=== PATIENT | male | born 1955 | race Caucasian/White ===

== ENCOUNTER 2018-10-21 21:42 | Inpatient (IN) | payer BC ==
[~2018-10-21] VITALS: Ht 185.4 cm; Wt 111.2 kg
[2018-10-21] MEDS ORDERED: dilTIAZem IV PUSH 25 MG/5 ML VIAL IVP ONE ×2 (22:00→23:30)
[2018-10-21 22:12] LABS: BASO % 1 % (0-3); EOS # 0.1 x10^3/uL (0.0-0.7); EOS % 1 % (0-3); HEMATOCRIT 41.5 % (39.0-53.0); HEMOGLOBIN 13.9 g/dL (13.0-17.5); LYMPH # 2.7 x10^3/uL (1.0-4.8); LYMPH % 28 % (24-48); MEAN CORPUSCULAR HEMOGLOBIN 30 pg (25-35); MEAN CORPUSCULAR HGB CONC 33 g/dL (31-37); MEAN CORPUSCULAR VOLUME 90 fL (79-100); MONO % 11 % (0-9); NEUT # 5.8 x10^3uL (1.8-7.7); NEUT % 60 % (31-73); PLATELET COUNT 213 x10^3/uL (140-400); RED BLOOD COUNT 4.62 x10^6/uL (4.30-5.70); RED CELL DISTRIBUTION WIDTH 15.4 % (11.5-14.5); WHITE BLOOD COUNT 9.7 x10^3/uL (4.0-11.0)
[2018-10-21 22:24] LABS: CALCIUM 9.7 mg/dL (8.5-10.1); CREATININE 1.2 mg/dL (0.7-1.3); GFR 61.1
--- NOTE | 2018-10-21 22:25 | RAD ---
Indication:Palpitations TECHNIQUE:Portable AP chest X-ray COMPARISON: None FINDINGS: Heart is normal in size. Lungs are clear. Prominent bilateral bronchial markings. Visualized bony thorax within normal limits. No pneumothorax or pleural effusion. IMPRESSION: Findings suggests bronchitis. Electronically signed by: Jose De Jesus Saleh DO (10/21/2018 10:22 PM) [facility]
[2018-10-21 22:30] LABS: ALBUMIN 4.3 g/dL (3.4-5.0); ALBUMIN/GLOBULIN RATIO 1.5 (1.0-1.7); TOTAL BILIRUBIN 0.4 mg/dL (0.2-1.0); TOTAL PROTEIN 7.2 g/dL (6.4-8.2)
[2018-10-21] MEDS ORDERED: IV NORMAL SALINE 1000ML BAG 1,000 ML IV SCH (23:00)
[2018-10-21] MEDS ORDERED: ASPIRIN CHEWABLE 81 MG TABLET. PO ONE (23:00)
--- NOTE | 2018-10-21 23:06 | PHYS DOC ---
Past Medical History Past Medical History: A-Fib Additional Past Medical Histor: A-fib in 1995 (not medicated for it) Past Surgical History: Other Additional Past Surgical Histo: Bilateral knee, right shoulder Alcohol Use: Occasionally Drug Use: None Adult General Chief Complaint Chief Complaint: Palpitations [facility] HPI Patient is a 63-year-old male who presents with complaint of palpitations stating that it feels like his heart is beating very irregularly and fast. He denies any actual chest pain but does state that he has a fight feeling in both shoulders. He denies any nausea, vomiting or diaphoresis. He does indicate that he does get some shortness of breath with exertion. Patient states that symptoms that started earlier today and states that usually when he has symptoms like this they only last for a few minutes and resolved. He denies being on a blood thinner. He does report a history of atrial fibrillation in the past but states that it typically resolves spontaneously.[] Review of Systems Review of Systems Constitutional: Denies fever or chills [] Respiratory: Positive exertional shortness of breath [] Cardiovascular: No additional information not addressed in HPI [] GI: Denies abdominal pain, nausea, vomiting or diarrhea [] Integument: Denies rash or skin lesions [] Neurologic: Denies headache, focal weakness or sensory changes [] All other systems were reviewed and found to be within normal limits, except as documented in this note. Current Medications Current Medications Current Medications Medications (Trade) Dose Ordered Sig/[facility] Start Time Stop Time Status Last Admin Dose Admin Aspirin (Children'S Aspirin) 324 mg 1X ONCE 10/21/18 23:00 10/21/18 23:01 DC 10/21/18 22:54 324 MG Diltiazem HCl (Cardizem Iv Push) 10 mg 1X ONCE 10/21/18 23:30 10/21/18 23:31 DC 10/21/18 23:41 10 MG Diltiazem HCl 125 mg/Dextrose 125 ml @ 5 mls/hr 1X ONCE 10/21/18 23:30 10/23/18 00:29 10/21/18 23:23 5 MLS/HR Sodium Chloride 1,000 ml @ 100 mls/hr Q10H 10/21/18 23:00 10/22/18 08:59 10/21/18 22:54 100 MLS/HR Allergies Allergies Allergies Coded Allergies Type Severity Reaction Last Updated Verified No Known Drug Allergies 10/21/18 No Physical Exam Physical Exam Constitutional: Well developed, well nourished, no acute distress, non-toxic appearance. [] HENT: Normocephalic, atraumatic, bilateral external ears normal, oropharynx moist, no oral exudates, nose normal. [] Eyes: PERRLA, EOMI, conjunctiva normal, no discharge. [] Neck: Normal range of motion, no tenderness, supple, no stridor. [] Cardiovascular: Markedly tachycardic rate with irregular rhythm[] Lungs & Thorax: Bilateral breath sounds clear to auscultation [] Abdomen: Bowel sounds normal, soft, no tenderness. [] Skin: Warm, dry, no erythema, no rash. [] Extremities: No tenderness, no cyanosis, no clubbing, ROM intact. [] Neurologic: Alert and oriented X 3, no focal deficits noted. [] Current Patient Data Vital Signs Vital Signs Date Time Temp Pulse Resp B/P (MAP) Pulse Ox O2 Delivery O2 Flow Rate FiO2 10/21/18 23:41 129 130/80 10/21/18 22:55 14 96 Room Air 10/21/18 21:42 98.7 98.7 Lab Values Laboratory Tests Test 10/21/18 22:03 White Blood Count 9.7 x10^3/uL (4.0-11.0) Red Blood Count 4.62 x10^6/uL (4.30-5.70) Hemoglobin 13.9 g/dL (13.0-17.5) Hematocrit 41.5 % (39.0-53.0) Mean Corpuscular Volume 90 fL (79-100) Mean Corpuscular Hemoglobin 30 pg (25-35) Mean Corpuscular Hemoglobin Concent 33 g/dL (31-37) Red Cell Distribution Width 15.4 % (11.5-14.5) H Platelet Count 213 x10^3/uL (140-400) Neutrophils (%) (Auto) 60 % (31-73) Lymphocytes (%) (Auto) 28 % (24-48) Monocytes (%) (Auto) 11 % (0-9) H Eosinophils (%) (Auto) 1 % (0-3) Basophils (%) (Auto) 1 % (0-3) Neutrophils # (Auto) 5.8 x10^3uL (1.8-7.7) Lymphocytes # (Auto) 2.7 x10^3/uL (1.0-4.8) Monocytes # (Auto) 1.0 x10^3/uL (0.0-1.1) Eosinophils # (Auto) 0.1 x10^3/uL (0.0-0.7) Basophils # (Auto) 0.0 x10^3/uL (0.0-0.2) Sodium Level 144 mmol/L (136-145) Potassium Level 4.0 mmol/L (3.5-5.1) Chloride Level 105 mmol/L (98-107) Carbon Dioxide Level 26 mmol/L (21-32) Anion Gap 13 (6-14) Blood Urea Nitrogen 20 mg/dL (8-26) Creatinine 1.2 mg/dL (0.7-1.3) Estimated GFR (Cockcroft-Gault) 61.1 BUN/Creatinine Ratio 17 (6-20) Glucose Level 149 mg/dL (70-99) H Calcium Level 9.7 mg/dL (8.5-10.1) Magnesium Level 2.0 mg/dL (1.8-2.4) Total Bilirubin 0.4 mg/dL (0.2-1.0) Aspartate Amino Transferase (AST) 26 U/L (15-37) Alanine Aminotransferase (ALT) 28 U/L (16-63) Alkaline Phosphatase 71 U/L (46-116) Troponin I Quantitative < 0.017 ng/mL (0.000-0.055) VI-Aep-W-Type Natriuretic Peptide 148 pg/mL (0-124) H Total Protein 7.2 g/dL (6.4-8.2) Albumin 4.3 g/dL (3.4-5.0) Albumin/Globulin Ratio 1.5 (1.0-1.7) Thyroid Stimulating Hormone (TSH) 3.401 uIU/mL (0.358-3.74) Laboratory Tests 10/21/18 22:03 Laboratory Tests 10/21/18 22:03 EKG EKG [] Interpretation Time: EKG demonstrates atrial fibrillation with rapid ventricular response and rate of 149. Radiology/Procedures Radiology/Procedures [] Impressions: PROCEDURE: PORTABLE CHEST 1V Indication:Palpitations TECHNIQUE:Portable AP chest X-ray COMPARISON: None FINDINGS: Heart is normal in size. Lungs are clear. Prominent bilateral bronchial markings. Visualized bony thorax within normal limits. No pneumothorax or pleural effusion. IMPRESSION: Findings suggests bronchitis. Electronically signed by: Jose De Jesus Saleh DO (10/21/2018 10:22 PM) [facility] Course & Med Decision Making Course & Med Decision Making Pertinent Labs and Imaging studies reviewed. (See chart for details) [] Dragon Disclaimer Dragon Disclaimer This electronic medical record was generated, in whole or in part, using a voice recognition dictation system. Departure Departure Impression: Primary Impression: Atrial fibrillation with RVR Disposition: ADMITTED INPATIENT Admitting Physician: Priya Giang Condition: IMPROVED Referrals: BELLE RUBALCAVA MD (PCP) GONZALO SHAY Jr., DO October 21, 2018 23:06
[2018-10-21] MEDS ORDERED: dilTIAZem INJ 125 MG in IV DEXTROSE 5% 100ML 100 ML IV ONE (23:30)
[2018-10-22] VITALS (10 sets, daily range): BP systolic 109–148; BP diastolic 60–94
[2018-10-22] MEDS ORDERED: MORPHINE SULFATE 2 MG/ML VIAL. IV PRN (00:30)
[2018-10-22] MEDS ORDERED: ONDANSETRON PF 4 MG/2 ML VIAL. IV PRN (00:30)
[2018-10-22] MEDS ORDERED: NAPR500T8 PO (02:00)
--- NOTE | 2018-10-22 05:51 | NUR ---
Patient arrived to the unit around 0125. VS stable, assessment complete. Patient has a Cardizem drip running at 5ml/hr. resting comfortably on RA. no complaints of pain at this time. patient oriented to unit. bed in low, locked position. call light within reach.
--- NOTE | 2018-10-22 10:16 | PDOC1 ---
History and Physical Date of Admission: Date of Admission DATE: 10/22/18 TIME: 10:13 Chief Complaint: Problems: (1) Atrial fibrillation with RVR (2) Atrial fibrillation with RVR Chief Complain: Palpitations History of Present Illness: HPI: Patient is a pleasant 63-year-old male who had A. fib 23 years ago At that time he converted back to sinus rhythm but did undergo a cardiac catheter that was negative Once again he presents to the ER with chest discomfort and palpitations Worse when he lies down rated 9 out of 10 has some associated shortness of breath has been occurring off and on for couple days worse with moving describes as agonizing I discussed case with ER physician appears the patient's A. 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 because they'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 remodeling 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 kitchen Current Medications: Current Medications Current Medications Diltiazem HCl (Cardizem Iv Push) 20 mg 1X ONCE IVP Last administered on 10/21/18at 22:21; Start 10/21/18 at 22:00; Stop 10/21/18 at 22:44; Status DC Aspirin (Children'S Aspirin) 324 mg 1X ONCE PO Last administered on 10/21/18at 22:54; Start 10/21/18 at 23:00; Stop 10/21/18 at 23:01; Status DC Sodium Chloride 1,000 ml @ 100 mls/hr Q10H IV Last administered on 10/21/18at 22:54; Start 10/21/18 at 23:00; Stop 10/22/18 at 08:59; Status DC Diltiazem HCl (Cardizem Iv Push) 10 mg 1X ONCE IVP Last administered on 10/21/18at 23:41; Start 10/21/18 at 23:30; Stop 10/21/18 at 23:31; Status DC Diltiazem HCl 125 mg/Dextrose 125 ml @ 5 mls/hr 1X ONCE IV Last administered on 10/21/18at 23:23; Start 10/21/18 at 23:30; Stop 10/23/18 at 00:29 Ondansetron HCl (Zofran) 4 mg PRN Q8HRS PRN IV NAUSEA/VOMITING 1ST CHOICE; Start 10/22/18 at 00:30; Stop 10/23/18 at 00:29 Morphine Sulfate (Morphine Sulfate) 2 mg PRN Q2HR PRN IV SEVERE PAIN; Start 10/22/18 at 00:30; Stop 10/23/18 at 00:29 Active Scripts Active Reported Naproxen 500 Mg Tablet.dr 500 Mg PO BID ROS: Review of Systems Review of System REVIEW OF SYSTEMS: GENERAL: Denies weakness SKIN: No bruising, hair changes or rashes. EYES: No blurred, double or loss of vision. NOSE AND THROAT: No history of nosebleeds, hoarseness or sore throat. HEART: No history of palpitations, chest pain or shortness of breath on exertion. LUNGS: Denies cough, hemoptysis, wheezing or shortness of breath. GASTROINTESTINAL: Denies changes in appetite, nausea, vomiting, diarrhea or constipation. GENITOURINARY: No history of frequency, urgency, hesitancy or nocturia. NEUROLOGIC: Denies history of numbness, tingling, tremor or weakness. PSYCHIATRIC: No history of panic, anxiety or depression. ENDOCRINE: No history of heat or cold intolerance, polyuria or polydipsia. EXTREMITIES: Denies muscle weakness, joint pain, pain on walking or stiffness. Physical Exam: Vital Signs: Vital Signs Date Time Temp Pulse Resp B/P (MAP) Pulse Ox O2 Delivery O2 Flow Rate FiO2 10/22/18 08:00 Room Air 10/22/18 07:00 97.6 87 18 131/94 (106) 97 97.6 Physcial Exam: GEN.: No apparent distress. Alert and oriented. HEENT: Head is normocephalic, atraumatic NECK: Supple, no JVD LUNGS: Clear to auscultation without rhonchi or wheezing HEART: Intermittent A. fib normal S1-S2 ABDOMEN: Soft, nontender. Positive bowel sounds no organomegaly EXTREMITIES: Without any cyanosis, clubbing, or edema. Pedal pulses intact NEUROLOGIC: Normal speech, normal tone. A&O x 3 PSYCHIATRIC: Normal affect, normal mood. Stable SKIN: No ulcerations or rashes VASCULAR: Good capillary refill Labs: Labs: Laboratory Tests Test 10/21/18 22:03 10/22/18 05:00 10/22/18 06:15 White Blood Count 9.7 x10^3/uL (4.0-11.0) Red Blood Count 4.62 x10^6/uL (4.30-5.70) Hemoglobin 13.9 g/dL (13.0-17.5) Hematocrit 41.5 % (39.0-53.0) Mean Corpuscular Volume 90 fL (79-100) Mean Corpuscular Hemoglobin 30 pg (25-35) Mean Corpuscular Hemoglobin Concent 33 g/dL (31-37) Red Cell Distribution Width 15.4 % (11.5-14.5) Platelet Count 213 x10^3/uL (140-400) Neutrophils (%) (Auto) 60 % (31-73) Lymphocytes (%) (Auto) 28 % (24-48) Monocytes (%) (Auto) 11 % (0-9) Eosinophils (%) (Auto) 1 % (0-3) Basophils (%) (Auto) 1 % (0-3) Neutrophils # (Auto) 5.8 x10^3uL (1.8-7.7) Lymphocytes # (Auto) 2.7 x10^3/uL (1.0-4.8) Monocytes # (Auto) 1.0 x10^3/uL (0.0-1.1) Eosinophils # (Auto) 0.1 x10^3/uL (0.0-0.7) Basophils # (Auto) 0.0 x10^3/uL (0.0-0.2) Sodium Level 144 mmol/L (136-145) Potassium Level 4.0 mmol/L (3.5-5.1) Chloride Level 105 mmol/L (98-107) Carbon Dioxide Level 26 mmol/L (21-32) Anion Gap 13 (6-14) Blood Urea Nitrogen 20 mg/dL (8-26) Creatinine 1.2 mg/dL (0.7-1.3) Estimated GFR (Cockcroft-Gault) 61.1 BUN/Creatinine Ratio 17 (6-20) Glucose Level 149 mg/dL (70-99) Calcium Level 9.7 mg/dL (8.5-10.1) Magnesium Level 2.0 mg/dL (1.8-2.4) Total Bilirubin 0.4 mg/dL (0.2-1.0) Aspartate Amino Transf (AST/SGOT) 26 U/L (15-37) Alanine Aminotransferase (ALT/SGPT) 28 U/L (16-63) Alkaline Phosphatase 71 U/L (46-116) Troponin I Quantitative < 0.017 ng/mL (0.000-0.055) 0.022 ng/mL (0.000-0.055) 0.018 ng/mL (0.000-0.055) JL-Ysc-O-Type Natriuretic Peptide 148 pg/mL (0-124) Total Protein 7.2 g/dL (6.4-8.2) Albumin 4.3 g/dL (3.4-5.0) Albumin/Globulin Ratio 1.5 (1.0-1.7) Thyroid Stimulating Hormone (TSH) 3.401 uIU/mL (0.358-3.74) Laboratory Tests Test 10/21/18 22:03 10/22/18 05:00 10/22/18 06:15 White Blood Count 9.7 x10^3/uL (4.0-11.0) Red Blood Count 4.62 x10^6/uL (4.30-5.70) Hemoglobin 13.9 g/dL (13.0-17.5) Hematocrit 41.5 % (39.0-53.0) Mean Corpuscular Volume 90 fL (79-100) Mean Corpuscular Hemoglobin 30 pg (25-35) Mean Corpuscular Hemoglobin Concent 33 g/dL (31-37) Red Cell Distribution Width 15.4 % (11.5-14.5) Platelet Count 213 x10^3/uL (140-400) Neutrophils (%) (Auto) 60 % (31-73) Lymphocytes (%) (Auto) 28 % (24-48) Monocytes (%) (Auto) 11 % (0-9) Eosinophils (%) (Auto) 1 % (0-3) Basophils (%) (Auto) 1 % (0-3) Neutrophils # (Auto) 5.8 x10^3uL (1.8-7.7) Lymphocytes # (Auto) 2.7 x10^3/uL (1.0-4.8) Monocytes # (Auto) 1.0 x10^3/uL (0.0-1.1) Eosinophils # (Auto) 0.1 x10^3/uL (0.0-0.7) Basophils # (Auto) 0.0 x10^3/uL (0.0-0.2) Sodium Level 144 mmol/L (136-145) Potassium Level 4.0 mmol/L (3.5-5.1) Chloride Level 105 mmol/L (98-107) Carbon Dioxide Level 26 mmol/L (21-32) Anion Gap 13 (6-14) Blood Urea Nitrogen 20 mg/dL (8-26) Creatinine 1.2 mg/dL (0.7-1.3) Estimated GFR (Cockcroft-Gault) 61.1 BUN/Creatinine Ratio 17 (6-20) Glucose Level 149 mg/dL (70-99) Calcium Level 9.7 mg/dL (8.5-10.1) Magnesium Level 2.0 mg/dL (1.8-2.4) Total Bilirubin 0.4 mg/dL (0.2-1.0) Aspartate Amino Transf (AST/SGOT) 26 U/L (15-37) Alanine Aminotransferase (ALT/SGPT) 28 U/L (16-63) Alkaline Phosphatase 71 U/L (46-116) Troponin I Quantitative < 0.017 ng/mL (0.000-0.055) 0.022 ng/mL (0.000-0.055) 0.018 ng/mL (0.000-0.055) DH-Xjk-E-Type Natriuretic Peptide 148 pg/mL (0-124) Total Protein 7.2 g/dL (6.4-8.2) Albumin 4.3 g/dL (3.4-5.0) Albumin/Globulin Ratio 1.5 (1.0-1.7) Thyroid Stimulating Hormone (TSH) 3.401 uIU/mL (0.358-3.74) Images: Images Chest x-ray without acute changes Assessment/Plan Assessment/Plan A. fib with RVR Plan Serial enzymes, serial EKGs, cardiac monitoring , consult cardiology IV Cardizem drip we'll consider anticoagulation continue home medicines DVT prophylaxis PTOT prognosis guarded Total time 32 minutes GABY GARCIA III, DO October 22, 2018 10:16
--- NOTE | 2018-10-22 11:37 | PDOC2 ---
CONSULT Date of Consult Date of Consult DATE: 10/22/18 TIME: 11:37 Reason for Consult Reason for Consult: Atrial fibrillation Referring Physician Referring Physician: Dr. Olson Identification/Chief Complaint Chief Complaint Palpitations Source Source: Chart review, Patient History of Present Illness Reason for Visit: 63-year-old male was diagnosed with atrial fibrillation that converted spontaneously in 1995 presented complaining of palpitations that started last night when he was watching television. He was diagnosed with atrial fibrillation with rapid ventricular response and started on Cardizem drip with better rate control. He is presently feeling better and denied any chest pain, orthopnea/PND or syncope. Past Medical History Past Medical History Paroxysmal atrial fibrillation Past Surgical History Past Surgical History Bilateral knee and right shoulder surgeries Family History Family History Negative for premature coronary artery disease Social History Social History Patient denied any smoking or drug abuse but admitted to social intake of a [employer] Current Problem List Problem List Problems Medical Problems: (1) Atrial fibrillation with RVR Status: Acute Current Medications Current Medications Current Medications Diltiazem HCl (Cardizem Iv Push) 20 mg 1X ONCE IVP Last administered on 10/21/18at 22:21; Start 10/21/18 at 22:00; Stop 10/21/18 at 22:44; Status DC Aspirin (Children'S Aspirin) 324 mg 1X ONCE PO Last administered on 10/21/18at 22:54; Start 10/21/18 at 23:00; Stop 10/21/18 at 23:01; Status DC Sodium Chloride 1,000 ml @ 100 mls/hr Q10H IV Last administered on 10/21/18at 22:54; Start 10/21/18 at 23:00; Stop 10/22/18 at 08:59; Status DC Diltiazem HCl (Cardizem Iv Push) 10 mg 1X ONCE IVP Last administered on 10/21/18at 23:41; Start 10/21/18 at 23:30; Stop 10/21/18 at 23:31; Status DC Diltiazem HCl 125 mg/Dextrose 125 ml @ 5 mls/hr 1X ONCE IV Last administered on 10/21/18at 23:23; Start 10/21/18 at 23:30; Stop 10/23/18 at 00:29 Ondansetron HCl (Zofran) 4 mg PRN Q8HRS PRN IV NAUSEA/VOMITING 1ST CHOICE; S tart 10/22/18 at 00:30; Stop 10/23/18 at 00:29 Morphine Sulfate (Morphine Sulfate) 2 mg PRN Q2HR PRN IV SEVERE PAIN; Start 10/22/18 at 00:30; Stop 10/23/18 at 00:29 Active Scripts Active Reported Naproxen 500 Mg Tablet.dr 500 Mg PO BID Allergies Allergies: Coded Allergies: No Known Drug Allergies (Unverified , 10/21/18) ROS PSYCHOLOGICAL ROS: No: Hallucinations Eyes: No Loss of vision HEENT: No: Epistaxis Respiratory: No: Hemoptysis Cardiovascular: yes Palpitations; No Chest Pain Gastrointestinal: No Vomiting, No Diarrhea Genitourinary: No Hematuria Neurological: No Seizures Skin: No Rash Physical Exam General: Alert, Oriented X3 HEENT: Atraumatic, PERRLA Lungs: Clear to auscultation Heart: Regular rate Abdomen: Soft, No tenderness Extremities: No edema Psych/Mental Status: Mental status NL Vitals VITALS Vital Signs Date Time Temp Pulse Resp B/P (MAP) Pulse Ox O2 Delivery O2 Flow Rate FiO2 10/22/18 08:00 Room Air 10/22/18 07:00 97.6 87 18 131/94 (106) 97 97.6 Labs Labs Laboratory Tests Test 10/21/18 22:03 10/22/18 05:00 10/22/18 06:15 White Blood Count 9.7 x10^3/uL (4.0-11.0) Red Blood Count 4.62 x10^6/uL (4.30-5.70) Hemoglobin 13.9 g/dL (13.0-17.5) Hematocrit 41.5 % (39.0-53.0) Mean Corpuscular Volume 90 fL (79-100) Mean Corpuscular Hemoglobin 30 pg (25-35) Mean Corpuscular Hemoglobin Concent 33 g/dL (31-37) Red Cell Distribution Width 15.4 % (11.5-14.5) Platelet Count 213 x10^3/uL (140-400) Neutrophils (%) (Auto) 60 % (31-73) Lymphocytes (%) (Auto) 28 % (24-48) Monocytes (%) (Auto) 11 % (0-9) Eosinophils (%) (Auto) 1 % (0-3) Basophils (%) (Auto) 1 % (0-3) Neutrophils # (Auto) 5.8 x10^3uL (1.8-7.7) Lymphocytes # (Auto) 2.7 x10^3/uL (1.0-4.8) Monocytes # (Auto) 1.0 x10^3/uL (0.0-1.1) Eosinophils # (Auto) 0.1 x10^3/uL (0.0-0.7) Basophils # (Auto) 0.0 x10^3/uL (0.0-0.2) Sodium Level 144 mmol/L (136-145) Potassium Level 4.0 mmol/L (3.5-5.1) Chloride Level 105 mmol/L (98-107) Carbon Dioxide Level 26 mmol/L (21-32) Anion Gap 13 (6-14) Blood Urea Nitrogen 20 mg/dL (8-26) Creatinine 1.2 mg/dL (0.7-1.3) Estimated GFR (Cockcroft-Gault) 61.1 BUN/Creatinine Ratio 17 (6-20) Glucose Level 149 mg/dL (70-99) Calcium Level 9.7 mg/dL (8.5-10.1) Magnesium Level 2.0 mg/dL (1.8-2.4) Total Bilirubin 0.4 mg/dL (0.2-1.0) Aspartate Amino Transf (AST/SGOT) 26 U/L (15-37) Alanine Aminotransferase (ALT/SGPT) 28 U/L (16-63) Alkaline Phosphatase 71 U/L (46-116) Troponin I Quantitative < 0.017 ng/mL (0.000-0.055) 0.022 ng/mL (0.000-0.055) 0.018 ng/mL (0.000-0.055) LL-Idt-A-Type Natriuretic Peptide 148 pg/mL (0-124) Total Protein 7.2 g/dL (6.4-8.2) Albumin 4.3 g/dL (3.4-5.0) Albumin/Globulin Ratio 1.5 (1.0-1.7) Thyroid Stimulating Hormone (TSH) 3.401 uIU/mL (0.358-3.74) Laboratory Tests Test 10/21/18 22:03 10/22/18 05:00 10/22/18 06:15 White Blood Count 9.7 x10^3/uL (4.0-11.0) Red Blood Count 4.62 x10^6/uL (4.30-5.70) Hemoglobin 13.9 g/dL (13.0-17.5) Hematocrit 41.5 % (39.0-53.0) Mean Corpuscular Volume 90 fL (79-100) Mean Corpuscular Hemoglobin 30 pg (25-35) Mean Corpuscular Hemoglobin Concent 33 g/dL (31-37) Red Cell Distribution Width 15.4 % (11.5-14.5) Platelet Count 213 x10^3/uL (140-400) Neutrophils (%) (Auto) 60 % (31-73) Lymphocytes (%) (Auto) 28 % (24-48) Monocytes (%) (Auto) 11 % (0-9) Eosinophils (%) (Auto) 1 % (0-3) Basophils (%) (Auto) 1 % (0-3) Neutrophils # (Auto) 5.8 x10^3uL (1.8-7.7) Lymphocytes # (Auto) 2.7 x10^3/uL (1.0-4.8) Monocytes # (Auto) 1.0 x10^3/uL (0.0-1.1) Eosinophils # (Auto) 0.1 x10^3/uL (0.0-0.7) Basophils # (Auto) 0.0 x10^3/uL (0.0-0.2) Sodium Level 144 mmol/L (136-145) Potassium Level 4.0 mmol/L (3.5-5.1) Chloride Level 105 mmol/L (98-107) Carbon Dioxide Level 26 mmol/L (21-32) Anion Gap 13 (6-14) Blood Urea Nitrogen 20 mg/dL (8-26) Creatinine 1.2 mg/dL (0.7-1.3) Estimated GFR (Cockcroft-Gault) 61.1 BUN/Creatinine Ratio 17 (6-20) Glucose Level 149 mg/dL (70-99) Calcium Level 9.7 mg/dL (8.5-10.1) Magnesium Level 2.0 mg/dL (1.8-2.4) Total Bilirubin 0.4 mg/dL (0.2-1.0) Aspartate Amino Transf (AST/SGOT) 26 U/L (15-37) Alanine Aminotransferase (ALT/SGPT) 28 U/L (16-63) Alkaline Phosphatase 71 U/L (46-116) Troponin I Quantitative < 0.017 ng/mL (0.000-0.055) 0.022 ng/mL (0.000-0.055) 0.018 ng/mL (0.000-0.055) KK-Cwv-Q-Type Natriuretic Peptide 148 pg/mL (0-124) Total Protein 7.2 g/dL (6.4-8.2) Albumin 4.3 g/dL (3.4-5.0) Albumin/Globulin Ratio 1.5 (1.0-1.7) Thyroid Stimulating Hormone (TSH) 3.401 uIU/mL (0.358-3.74) Assessment/Plan Assessment/Plan Atrial fibrillation with rapid ventricular response. Rate better controlled with Cardizem infusion. We will change this to by mouth. TSH level normal. Start eliquis for stroke prophylaxis and plan outpatient cardioversion in 3-4 weeks. Check 2-D echo to assess LV systolic function. RAGHAV POSADAS MD October 22, 2018 11:37
[2018-10-22] MEDS ORDERED: ANTI-COAG MONITOR BY PHARMACY. MC PRN (11:45)
--- NOTE | 2018-10-22 12:20 | EKG ---
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
[2018-10-22] MEDS: APIXABAN 5 MG TABLET. PO SCH ×2 (12:40→20:12)
--- NOTE | 2018-10-22 14:33 | NUR ---
SS following for discharge planning. SS reviewed pt chart. Pt is from home with spouse and is currently on room air. No discharge needs noted at this time. SS will continue to follow for discharge planning.
[2018-10-23 03:05] VITALS: BP 127/82
[2018-10-23 07:00] VITALS: BP 146/91
[2018-10-23 07:02] LABS: BASO % 0 % (0-3); EOS # 0.2 x10^3/uL (0.0-0.7); EOS % 3 % (0-3); HEMATOCRIT 42.3 % (39.0-53.0); HEMOGLOBIN 13.8 g/dL (13.0-17.5); LYMPH # 2.3 x10^3/uL (1.0-4.8); LYMPH % 33 % (24-48); MEAN CORPUSCULAR HEMOGLOBIN 29 pg (25-35); MEAN CORPUSCULAR HGB CONC 33 g/dL (31-37); MEAN CORPUSCULAR VOLUME 90 fL (79-100); MONO # 0.6 x10^3/uL (0.0-1.1); MONO % 8 % (0-9); NEUT # 3.9 x10^3uL (1.8-7.7); NEUT % 55 % (31-73); PLATELET COUNT 195 x10^3/uL (140-400); RED BLOOD COUNT 4.69 x10^6/uL (4.30-5.70); RED CELL DISTRIBUTION WIDTH 15.3 % (11.5-14.5)
[2018-10-23 07:24] LABS: ALBUMIN 3.3 g/dL (3.4-5.0); CALCIUM 8.9 mg/dL (8.5-10.1); GFR 75.5; POTASSIUM 4.3 mmol/L (3.5-5.1); TOTAL BILIRUBIN 0.6 mg/dL (0.2-1.0); TOTAL PROTEIN 6.5 g/dL (6.4-8.2)
[2018-10-23] MEDS: APIXABAN 5 MG TABLET. PO SCH (08:19)
[2018-10-23 11:00] VITALS: BP 144/89
--- NOTE | 2018-10-23 11:08 | PDOC ---
CARDIOLOGY PROGRESS NOTE SUBJECTIVE: No acute events. In SR. OBJECTIVE: Vital SIgns: Vital Signs Date Time Temp Pulse Resp B/P (MAP) Pulse Ox O2 Delivery O2 Flow Rate FiO2 10/23/18 08:20 71 146/91 10/23/18 07:00 97.9 14 96 Room Air 97.9 I & O l Intake and Output 10/23/18 07:00 Intake Total 300 ml Output Total 900 ml Balance -600 ml Intake Oral 300 ml Output Urine Total 900 ml Objective: GEN.: No apparent distress. Alert and oriented. HEENT: Head is normocephalic, atraumatic NECK: Supple. LUNGS: Clear to auscultation. HEART: RRR, S1, S2 present. Peripheral pulses intact ABDOMEN: Soft, nontender. Positive bowel sounds. EXTREMITIES: Without any cyanosis. NEUROLOGIC: Normal speech, normal tone PSYCHIATRIC: Normal affect, normal mood. SKIN: No ulcerations CURRENT MEDICATIONS: Current Medications Medications (Trade) Dose Ordered Sig/Hermann Start Time Stop Time Status Last Admin Dose Admin Apixaban (Eliquis) 5 mg BID 10/22/18 11:45 10/23/18 08:19 5 MG Aspirin (Children'S Aspirin) 324 mg 1X ONCE 10/21/18 23:00 10/21/18 23:01 DC 10/21/18 22:54 324 MG Diltiazem HCl (Cardizem 24hr Cd) 180 mg DAILY 10/22/18 11:45 10/23/18 08:20 180 MG Diltiazem HCl (Cardizem Iv Push) 10 mg 1X ONCE 10/21/18 23:30 10/21/18 23:31 DC 10/21/18 23:41 10 MG Diltiazem HCl 125 mg/Dextrose 125 ml @ 5 mls/hr 1X ONCE 10/21/18 23:30 10/22/18 11:39 DC 10/21/18 23:23 5 MLS/HR Info (Anti-Coagulation Monitoring By Pharmacy) 1 each PRN DAILY PRN 10/22/18 11:45 Morphine Sulfate (Morphine Sulfate) 2 mg PRN Q2HR PRN 10/22/18 00:30 10/23/18 00:29 DC Ondansetron HCl (Zofran) 4 mg PRN Q8HRS PRN 10/22/18 00:30 10/23/18 00:29 DC Sodium Chloride 1,000 ml @ 100 mls/hr Q10H 10/21/18 23:00 10/22/18 08:59 DC 10/21/18 22:54 100 MLS/HR DIAGNOSTIC TESTING: Echo wnl ASSESSMENT: 1. Afib with RVR, converted with medical therapy PLAN: 1. home on dilt/eliquis. 2. will f/u in the office in 4-6 weeks either with myself or Dr. Edwards. ok to dc today. HARISH Chase MD October 23, 2018 11:08
[2018-10-23] MEDS ORDERED: DILT180C29 PO (11:33)
[2018-10-23] MEDS ORDERED: APIX5TAB PO (11:33)
--- NOTE | 2018-10-23 12:22 | PDOC ---
[facility] PROGRESS NOTE Chief Complaint Chief Complaint A. fib with RVR History of Present Illness History of Present Illness Patient seen and examined He has converted out of A. fib while on Cardizem Feels improved in NAD Vitals Vitals Vital Signs Date Time Temp Pulse Resp B/P (MAP) Pulse Ox O2 Delivery O2 Flow Rate FiO2 10/23/18 11:00 98.3 81 16 144/89 (107) 96 Room Air 98.3 Physical Exam General: Alert, Oriented X3 Heart: Regular rate, Normal S1, Normal S2 Abdomen: Soft, No tenderness Extremities: No edema Labs Labs: Laboratory Tests Test 10/23/18 05:32 White Blood Count 7.0 x10^3/uL (4.0-11.0) Red Blood Count 4.69 x10^6/uL (4.30-5.70) Hemoglobin 13.8 g/dL (13.0-17.5) Hematocrit 42.3 % (39.0-53.0) Mean Corpuscular Volume 90 fL (79-100) Mean Corpuscular Hemoglobin 29 pg (25-35) Mean Corpuscular Hemoglobin Concent 33 g/dL (31-37) Red Cell Distribution Width 15.3 % (11.5-14.5) Platelet Count 195 x10^3/uL (140-400) Neutrophils (%) (Auto) 55 % (31-73) Lymphocytes (%) (Auto) 33 % (24-48) Monocytes (%) (Auto) 8 % (0-9) Eosinophils (%) (Auto) 3 % (0-3) Basophils (%) (Auto) 0 % (0-3) Neutrophils # (Auto) 3.9 x10^3uL (1.8-7.7) Lymphocytes # (Auto) 2.3 x10^3/uL (1.0-4.8) Monocytes # (Auto) 0.6 x10^3/uL (0.0-1.1) Eosinophils # (Auto) 0.2 x10^3/uL (0.0-0.7) Basophils # (Auto) 0.0 x10^3/uL (0.0-0.2) Sodium Level 142 mmol/L (136-145) Potassium Level 4.3 mmol/L (3.5-5.1) Chloride Level 108 mmol/L (98-107) Carbon Dioxide Level 26 mmol/L (21-32) Anion Gap 8 (6-14) Blood Urea Nitrogen 18 mg/dL (8-26) Creatinine 1.0 mg/dL (0.7-1.3) Estimated GFR (Cockcroft-Gault) 75.5 BUN/Creatinine Ratio 18 (6-20) Glucose Level 104 mg/dL (70-99) Calcium Level 8.9 mg/dL (8.5-10.1) Total Bilirubin 0.6 mg/dL (0.2-1.0) Aspartate Amino Transf (AST/SGOT) 16 U/L (15-37) Alanine Aminotransferase (ALT/SGPT) 22 U/L (16-63) Alkaline Phosphatase 57 U/L (46-116) Total Protein 6.5 g/dL (6.4-8.2) Albumin 3.3 g/dL (3.4-5.0) Albumin/Globulin Ratio 1.0 (1.0-1.7) Review of Systems Review of Systems Patient denies SOA Patient denies N/V Assessment and Plan Assessmemt and Plan Problems Medical Problems: (1) Atrial fibrillation with RVR Status: Acute Assessment: A. fib with RVR Plan: Cardiac monitoring Nusrat Lanier for Anticoagulation Cards consulted PT/OT Discharge if okay with subspecialists Comment Review of Relevant I have reviewed the following items luis eduardo (where applicable) has been applied. Labs Laboratory Tests Test 10/21/18 22:03 10/22/18 05:00 10/22/18 06:15 10/23/18 05:32 White Blood Count 9.7 x10^3/uL (4.0-11.0) 7.0 x10^3/uL (4.0-11.0) Red Blood Count 4.62 x10^6/uL (4.30-5.70) 4.69 x10^6/uL (4.30-5.70) Hemoglobin 13.9 g/dL (13.0-17.5) 13.8 g/dL (13.0-17.5) Hematocrit 41.5 % (39.0-53.0) 42.3 % (39.0-53.0) Mean Corpuscular Volume 90 fL (79-100) 90 fL (79-100) Mean Corpuscular Hemoglobin 30 pg (25-35) 29 pg (25-35) Mean Corpuscular Hemoglobin Concent 33 g/dL (31-37) 33 g/dL (31-37) Red Cell Distribution Width 15.4 % (11.5-14.5) 15.3 % (11.5-14.5) Platelet Count 213 x10^3/uL (140-400) 195 x10^3/uL (140-400) Neutrophils (%) (Auto) 60 % (31-73) 55 % (31-73) Lymphocytes (%) (Auto) 28 % (24-48) 33 % (24-48) Monocytes (%) (Auto) 11 % (0-9) 8 % (0-9) Eosinophils (%) (Auto) 1 % (0-3) 3 % (0-3) Basophils (%) (Auto) 1 % (0-3) 0 % (0-3) Neutrophils # (Auto) 5.8 x10^3uL (1.8-7.7) 3.9 x10^3uL (1.8-7.7) Lymphocytes # (Auto) 2.7 x10^3/uL (1.0-4.8) 2.3 x10^3/uL (1.0-4.8) Monocytes # (Auto) 1.0 x10^3/uL (0.0-1.1) 0.6 x10^3/uL (0.0-1.1) Eosinophils # (Auto) 0.1 x10^3/uL (0.0-0.7) 0.2 x10^3/uL (0.0-0.7) Basophils # (Auto) 0.0 x10^3/uL (0.0-0.2) 0.0 x10^3/uL (0.0-0.2) Sodium Level 144 mmol/L (136-145) 142 mmol/L (136-145) Potassium Level 4.0 mmol/L (3.5-5.1) 4.3 mmol/L (3.5-5.1) Chloride Level 105 mmol/L (98-107) 108 mmol/L (98-107) Carbon Dioxide Level 26 mmol/L (21-32) 26 mmol/L (21-32) Anion Gap 13 (6-14) 8 (6-14) Blood Urea Nitrogen 20 mg/dL (8-26) 18 mg/dL (8-26) Creatinine 1.2 mg/dL (0.7-1.3) 1.0 mg/dL (0.7-1.3) Estimated GFR (Cockcroft-Gault) 61.1 75.5 BUN/Creatinine Ratio 17 (6-20) 18 (6-20) Glucose Level 149 mg/dL (70-99) 104 mg/dL (70-99) Calcium Level 9.7 mg/dL (8.5-10.1) 8.9 mg/dL (8.5-10.1) Magnesium Level 2.0 mg/dL (1.8-2.4) Total Bilirubin 0.4 mg/dL (0.2-1.0) 0.6 mg/dL (0.2-1.0) Aspartate Amino Transf (AST/SGOT) 26 U/L (15-37) 16 U/L (15-37) Alanine Aminotransferase (ALT/SGPT) 28 U/L (16-63) 22 U/L (16-63) Alkaline Phosphatase 71 U/L (46-116) 57 U/L (46-116) Troponin I Quantitative < 0.017 ng/mL (0.000-0.055) 0.022 ng/mL (0.000-0.055) 0.018 ng/mL (0.000-0.055) CQ-Eft-U-Type Natriuretic Peptide 148 pg/mL (0-124) Total Protein 7.2 g/dL (6.4-8.2) 6.5 g/dL (6.4-8.2) Albumin 4.3 g/dL (3.4-5.0) 3.3 g/dL (3.4-5.0) Albumin/Globulin Ratio 1.5 (1.0-1.7) 1.0 (1.0-1.7) Thyroid Stimulating Hormone (TSH) 3.401 uIU/mL (0.358-3.74) Laboratory Tests Test 10/23/18 05:32 White Blood Count 7.0 x10^3/uL (4.0-11.0) Red Blood Count 4.69 x10^6/uL (4.30-5.70) Hemoglobin 13.8 g/dL (13.0-17.5) Hematocrit 42.3 % (39.0-53.0) Mean Corpuscular Volume 90 fL (79-100) Mean Corpuscular Hemoglobin 29 pg (25-35) Mean Corpuscular Hemoglobin Concent 33 g/dL (31-37) Red Cell Distribution Width 15.3 % (11.5-14.5) Platelet Count 195 x10^3/uL (140-400) Neutrophils (%) (Auto) 55 % (31-73) Lymphocytes (%) (Auto) 33 % (24-48) Monocytes (%) (Auto) 8 % (0-9) Eosinophils (%) (Auto) 3 % (0-3) Basophils (%) (Auto) 0 % (0-3) Neutrophils # (Auto) 3.9 x10^3uL (1.8-7.7) Lymphocytes # (Auto) 2.3 x10^3/uL (1.0-4.8) Monocytes # (Auto) 0.6 x10^3/uL (0.0-1.1) Eosinophils # (Auto) 0.2 x10^3/uL (0.0-0.7) Basophils # (Auto) 0.0 x10^3/uL (0.0-0.2) Sodium Level 142 mmol/L (136-145) Potassium Level 4.3 mmol/L (3.5-5.1) Chloride Level 108 mmol/L (98-107) Carbon Dioxide Level 26 mmol/L (21-32) Anion Gap 8 (6-14) Blood Urea Nitrogen 18 mg/dL (8-26) Creatinine 1.0 mg/dL (0.7-1.3) Estimated GFR (Cockcroft-Gault) 75.5 BUN/Creatinine Ratio 18 (6-20) Glucose Level 104 mg/dL (70-99) Calcium Level 8.9 mg/dL (8.5-10.1) Total Bilirubin 0.6 mg/dL (0.2-1.0) Aspartate Amino Transf (AST/SGOT) 16 U/L (15-37) Alanine Aminotransferase (ALT/SGPT) 22 U/L (16-63) Alkaline Phosphatase 57 U/L (46-116) Total Protein 6.5 g/dL (6.4-8.2) Albumin 3.3 g/dL (3.4-5.0) Albumin/Globulin Ratio 1.0 (1.0-1.7) Medications Current Medications Diltiazem HCl (Cardizem Iv Push) 20 mg 1X ONCE IVP Last administered on 10/21/18at 22:21; Start 10/21/18 at 22:00; Stop 10/21/18 at 22:44; Status DC Aspirin (Children'S Aspirin) 324 mg 1X ONCE PO Last administered on 10/21/18at 22:54; Start 10/21/18 at 23:00; Stop 10/21/18 at 23:01; Status DC Sodium Chloride 1,000 ml @ 100 mls/hr Q10H IV Last administered on 10/21/18at 22:54; Start 10/21/18 at 23:00; Stop 10/22/18 at 08:59; Status DC Diltiazem HCl (Cardizem Iv Push) 10 mg 1X ONCE IVP Last administered on 10/21/18at 23:41; Start 10/21/18 at 23:30; Stop 10/21/18 at 23:31; Status DC Diltiazem HCl 125 mg/Dextrose 125 ml @ 5 mls/hr 1X ONCE IV Last administered on 10/21/18at 23:23; Start 10/21/18 at 23:30; Stop 10/22/18 at 11:39; Status DC Ondansetron HCl (Zofran) 4 mg PRN Q8HRS PRN IV NAUSEA/VOMITING 1ST CHOICE; Start 10/22/18 at 00:30; Stop 10/23/18 at 00:29; Status DC Morphine Sulfate (Morphine Sulfate) 2 mg PRN Q2HR PRN IV SEVERE PAIN; Start 10/22/18 at 00:30; Stop 10/23/18 at 00:29; Status DC Diltiazem HCl (Cardizem 24hr Cd) 180 mg DAILY PO Last administered on 10/23/18at 08:20; Start 10/22/18 at 11:45 Apixaban (Eliquis) 5 mg BID PO Last administered on 10/23/18at 08:19; Start 10/22/18 at 11:45 Info (Anti-Coagulation Monitoring By Pharmacy) 1 each PRN DAILY PRN MC SEE COMMENTS; Start 10/22/18 at 11:45 Active Scripts Active Reported Diltiazem 24HR Cd (Diltiazem Hcl) 180 Mg Cap.er.24h 1 Cap PO DAILY Eliquis (Apixaban) 5 Mg Tablet 5 Mg PO BID Vitals/I & O Vital Sign - Last 24 Hours 10/22/18 10/22/18 10/22/18 10/22/18 12:41 15:00 19:40 19:55 Temp 98.1 98.4 98.1 98.4 Pulse 87 124 77 Resp 18 16 B/P (MAP) 131/94 140/84 (102) 117/78 (91) Pulse Ox 97 96 O2 Delivery Room Air Room Air Room Air 10/22/18 10/23/18 10/23/18 10/23/18 23:37 03:05 07:00 08:20 Temp 98.6 97.7 97.9 98.6 97.7 97.9 Pulse 77 69 71 71 Resp 16 16 14 B/P (MAP) 109/60 (76) 127/82 (97) 146/91 (109) 146/91 Pulse Ox 96 97 96 O2 Delivery Room Air Room Air Room Air 10/23/18 11:00 Temp 98.3 98.3 Pulse 81 Resp 16 B/P (MAP) 144/89 (107) Pulse Ox 96 O2 Delivery Room Air Intake and Output 10/22/18 10/22/18 10/23/18 15:00 23:00 07:00 Intake Total 300 ml Output Total 900 ml Balance -900 ml 300 ml GABY GARCIA III DO October 23, 2018 12:22
--- NOTE | 2018-10-23 12:43 | NUR ---
Patient discharged this shift. Vital signs stable. Pt walked with staff nurse icu resource team to car where was waiting. Prescriptions called to [facility] in [place]. [phone] given to Laura pharmacist.
--- NOTE | 2018-10-26 10:56 | CARD ---
MR#: [id number] Date of Study: 10/22/2018 Ordering Physician: RAGHAV POSADAS, Referring Physician: PRADEEP HENNESSY Tech: Thalia Isabel [facility] APPROVED REPORT EXAM: Two-dimensional and M-mode echocardiogram with Doppler and color Doppler. Other Information Quality : Good Rhythm : Atrial Fibrillation INDICATION Atrial Fibrillation 2D DIMENSIONS Left Atrium(2D)4.1 (1.6-4.0cm)IVSd1.5 (0.7-1.1cm) Aortic Root(2D)3.7 (2.0-3.7cm)LVDd3.5 (3.9-5.9cm) LVOT Diameter2.3 (1.8-2.4cm)PWd1.0 (0.7-1.1cm) LVDs3.1 (2.5-4.0cm)FS (%) 30.0 % SV14.7 mlLVEF(%)60.0 (>50%) Aortic Valve AoV Peak Kirby.98.7cm/sAoV VTI16.9cm AO Peak GR.3.9mmHgLVOT VTI 13.77cm AO Mean GR.3mmHgAVA (VTI)3.50cm2 Mitral Valve MV E Ejrkftvc50.4cm/sMV DECEL [id number] TDI Lateral E' P. V7.27cm/sMedial E' P. V4.38cm/s E/Lateral E'8.7E/Medial E'14.5 Tricuspid Valve TR P. Azdbxfax276mb/sRAP [id number] TR Peak Gr.[id number] LEFT VENTRICLE The left ventricle is normal size. There is moderate asymmetric septal hypertrophy. The left ventricu lar systolic function is normal. The Ejection Fraction is 55-60%. There is normal LV segmental wall m otion. RIGHT VENTRICLE The right ventricle is normal size. The right ventricular systolic function is normal. ATRIA The left atrium is mildly dilated. The right atrium size is normal. The interatrial septum is intact with no evidence for an atrial septal defect or patent foramen ovale as noted on 2-D or Doppler imagi ng. AORTIC VALVE The aortic valve is calcified but opens well. Doppler and Color Flow revealed no significant aortic r egurgitation. There is no significant aortic valvular stenosis. MITRAL VALVE The mitral valve is calcified but opens well. Mitral annular calcification is mild. There is no evide nce of mitral valve prolapse. There is no mitral valve stenosis. Doppler and Color-flow revealed trac e mitral regurgitation. TRICUSPID VALVE The tricuspid valve is normal in structure and function. Doppler and Color Flow revealed trace tricus pid regurgitation. The PA pressure was estimated at 27 mmHg. There is no tricuspid valve stenosis. PULMONIC VALVE The pulmonic valve is not well visualized. Doppler and Color Flow revealed no pulmonic valvular regur gitation. There is no pulmonic valvular stenosis. GREAT VESSELS The aortic root is normal in size. The ascending aorta is normal in size. The IVC is normal in size a nd collapses >50% with inspiration. PERICARDIAL EFFUSION There is no evidence of significant pericardial effusion. Critical Notification Critical Value: No <Conclusion> The left ventricular systolic function is normal. The Ejection Fraction is 55-60%. There is normal LV segmental wall motion. The left atrium is mildly dilated. Trace mitral regurgitation. Trace tricuspid regurgitation. The PA pressure was estimated at 27 mmHg. There is no evidence of significant pericardial effusion. Signed by : Raghav Posadas, Electronically Approved : 10/22/2018 12:39:49
== END 2018-10-23 12:29 | disposition home or self-care (01) | DRG 310 ==
LOC: ER 21:42 → 2 NORTH 10-22 00:20
PROVIDERS: ADMIT Internal Medicine; ATTEND Internal Medicine
DX: I48.0 Paroxysmal atrial fibrillation (principal); R07.89 Other chest pain; Z82.49 Family history of ischemic heart disease and other diseases of the circulatory system; Z79.899 Other long term (current) drug therapy
CPT/HCPCS: 36415; 71045; 80053; 83735; 83880; 84443; 84484; 85025; 93005; 93306; 96365; 96366; 96375; 96376; J3490; J7030; 99285-25